=== PATIENT | male | born 1985 | race Caucasian/White ===

== ENCOUNTER 2017-01-24 20:42 | Emergency (ER) | payer BC ==
[2017-01-24 20:56] VITALS: RESP 20; TEMP 97.2
--- NOTE | 2017-01-24 20:58 | PDOC ---
Upper Respiratory HPI - General Chief Complaint: Cough / URI Stated Complaint: Cough/sore throat/ dyspnea Date Seen by Provider: 01/24/17 Time Seen by Provider: 20:57 Source: POSITIVE: Patient Exam Limitations: POSITIVE: No limitations - History of Present Illness Initial Comments: Patient but is a 32-year-old man coming today with 1 week of upper airway congestion including stuffy nose and mild sore throat, cough, and short of breath. His symptoms have been intermittent but tonight got worse. Taking NyQuil and DayQuil at home which does seem to help. His cough isn't productive of clear sputum. He has no measured fevers at home but feels somewhat hot and flushed. He has no nausea he has no vomiting. He has some mild body aches. He denies any recent travel or recent antibiotic use. He says several people at his place of employment have similar symptoms. - Patient Home Medications Home Medications: Home Medications Albuterol [PROVENTIL HFA] 1 - 2 inh IH .Q4-6H PRN #1 inhaler 01/24/17 - Patient Allergies Allergies/Adverse Reactions: Allergies Allergy/AdvReac Type Severity Reaction Status Date / Time No Known Drug Allergies Allergy NOT Verified 01/24/17 20:45 APPLICABLE Past Medical History - heen HEENT History: Denies History Cardiovascular History: Denies History Respiratory History: Denies History Gastrointestinal History: Denies History Genitourinary History: Denies History Endocrine History: Denies History Musculoskeletal History: Denies History Neurological History: Denies History Blood Disorders: Denies History Psychiatric History: Denies History History of Sexually Transmitted Diseases: No Male Reproductive History: Denies History Cancer History: Denies History In Past Year Been Physically Harmed or Verbally Threatened: No History of MDRO: No History of Other Communicable Diseases: No Tobacco Use: Never Smoker Alcohol Use: Occasionally Substance Use Type: None Previous Surgical History: No Significant Family History: No pertinent family hx ROS - Limitations ROS Limitations: No Limitations Constitution: REPORTS: Chills Cardiovascular: REPORTS: Denies Cardiac Symptoms Respiratory: REPORTS: Cough Productive, Shortness Of Breath Neurological: REPORTS: Confusion Gastrointestinal: REPORTS: Denies GI Symptoms Endocrine: REPORTS: Denies Symptoms Musculoskeletal: REPORTS: Muscle Aches Genitourinary: REPORTS: Denies Symptoms Eyes: REPORTS: Denies Symptoms ENT: REPORTS: Denies Symptoms Skin: REPORTS: Denies Skin Symptoms Lympathic: REPORTS: Denies Lympathic Symptoms Immunologic: POSITIVE: Denies Symptoms Upper Respiratory/Fever Exam - General Appearance General Appearance: REPORTS: Alert, Cooperative, No Acute Distress - HEENT HEENT: POSITIVE: Head Inspection Nml, Eyes Inspection Nml, Ears Inspection Nml, Other (Posterior oropharynx is mildly erythematous with no exudate or edema.) - Neck Neck: REPORTS: Normal Inspection, Supple - Respiratory Respiratory: REPORTS: No Respiratory Distress, Breath Sounds Normal, No Pleuritic Chest Pain, Speaks Full Sentences, No Pain on Inspiration - Abdomen Abdomen: Denies Tenderness: (All Quadrants), No Distention: (All Quadrants) - Cardiovascular Cardiovascular: REPORTS: Regular Rate and Rhythm, Heart Sounds Normal Peripheral Pulses: Radial (R): 2+, Radial (L): 2+ - Skin Skin: REPORTS: Intact, Normal For Race - Extremities Extremity: Non-Tender: (All Extremities), Normal ROM: (All Extremities), Normal Inspection: (All Extremities) - Neurological / Psychological Neurological: POSITIVE: Affect Apporpriate, Oriented X3, Motor Normal, Sensation Normal Upper Resp/Fever Progress - Results Reviewed by me Xrays/CTs/US Reviewed by me: Yes Radiology Findings: no acute findings - Patient's Progress MDM / ED Course: Yaya Schroeder is a 32-year-old man coming in today with a mild viral acute upper respiratory tract infection manifesting as cough and nasal congestion. We gave him an IM dose of Toradol as well as a nebulas albuterol treatment and upon reassessment patient reportedly felt quite a bit better. We will prescribe an albuterol inhaler to use for cough recommended fluids anti- inflammatories and rest patient verbalizes understanding and we gave him return precautions Patient Care Time - Estimated PCT Patient Care Time (In Minutes): 15 Vital Signs - Recent Vital Signs Vital Signs: Vital Signs (Last 8 hours) Temp Pulse Resp BP Pulse Ox 01/24/17 20:43 97.2 F 106 H 20 123/62 97 Discharge Clinical Impression: Cough, Upper respiratory infection Discharge Disposition: Discharged to Home Condition: Stable Prescriptions / Orders: Albuterol [PROVENTIL HFA] 1 - 2 inh IH .Q4-6H PRN #1 inhaler Patient Instructions Given at Discharge: Upper Respiratory Infection (ED) Follow Up With: RIGO ALEGRIA [Primary Care Provider] -
--- NOTE | 2017-01-24 21:29 | DI ---
PA /LATERAL CHEST X-RAY, 01/24/2017 8:58 PM : Clinical History: Cough. Previous Exam: None at this facility. There is no acute soft tissue or bony abnormality. Heart size is normal. Lungs are clear. Mediastinal structures are normal. There are no pulmonary nodules. Reading: Normal chest x-ray.
[2017-01-24] MEDS: KETOROLAC 60 MG/2 ML VIAL IM ONE (21:32)
[2017-01-24] MEDS: IPRATROPIUM/ALBUTEROL SULFATE 3 ML NEB NEB ONE (21:35)
[2017-01-24] MEDS ORDERED: KETOROLAC 60 MG/2 ML VIAL IM ONE (21:39)
== END 2017-01-24 21:48 | disposition home or self-care (01) ==
LOC: ER 20:42
DX: J06.9 Acute upper respiratory infection, unspecified (principal); J02.9 Acute pharyngitis, unspecified; R05 Cough
CPT/HCPCS: 71020; 94640; 96372; 99282 ×2; J1885; J7620

== ENCOUNTER → 2017-05-18 | Outpatient (CLI) | payer BC ==
[2017-05-18 20:45] LABS: BLOOD UREA NITROGEN 16 mg/dL (7-22); CALCIUM 8.9 mg/dL (8.7-10.7); EST GLOMERULAR FILTRATION > 60 (>60 ml/min/1.73m(2))
== END ==
LOC: LAB 20:10
PROVIDERS: ATTEND Family Medicine
DX: E87.5 Hyperkalemia (principal); R79.89 Other specified abnormal findings of blood chemistry
CPT/HCPCS: 36415; 80048